=== PATIENT | female | born 1995 | race African-American/Black ===

== ENCOUNTER 2017-09-05 10:54 | Emergency (ER) ==
[2017-09-05 11:01] VITALS: BP 125/79; TEMP 97.8; BMI 21.6
--- NOTE | 2017-09-05 12:20 | ED.PDOC ---
General ED Provider: Dr. VELMA CASTRO Chief Complaint: Abdominal Pain Stated Complaint: ABDOMINAL PAIN Time Seen by Physician: 11:00 Mode of Arrival: Walk-In Information Source: Patient Exam Limitations: No limitations Primary Care Provider: [facility] Nursing and Triage Documentation Reviewed and Agree: Yes Reviewed sepsis parameters & appropriate labs ordered?: Yes System Inflammatory Response Syndrome: Not Applicable Sepsis Protocol: For patient's 13 years and over: Temp is 96.8 and below OR 101 and greater Pulse >90 BPM Resp >20/minute Acutely Altered Mental Status Are patient's symptoms suggestive of a new infection, such as: -Pneumonia -Skin, Soft Tissue -Endocarditis -UTI -Bone, Joint Infection -Implantable Device -Acute Abdominal Infection -Wound Infection -Meningitis -Blood Stream Catheter Infection -Unknown System Inflammatory Response Syndrome: Not Applicable GI Complaint Exam - Abdominal Pain Complaint/Exam Onset: Gradual Duration: 2 MONTHS Symptoms Are: Still present Timing: Intermittent Initial Severity: Mild Current Severity: Mild Location of Pain: Diffuse Character: Reports: Dull, Aching Aggravating: Reports: None Alleviating: Reports: None Associated Signs and Symptoms: Reports: Cough. Denies: Diaphoresis, Fever, Chest pain, Dizziness, Back pain, Constipation, Blood in stool, Dysuria, Urinary frequency, Decreased urine output, Decreased appetite, Vaginal bleeding , Vaginal discharge, Nausea, Vomiting, Diarrhea, Sore throat, Decreased activity Related History: Reports: Similar episode AAA Risk Factors: Reports: None Cardiac Risk Factors: Reports: None Ectopic Risk Factors: Reports: None Ovarian Torsion Risk Factors: Reports: None Surgical Obstruction Risk Factors: Reports: None Related Surgical History: Reports: None Patient Rh Status: Unknown Abdominal Findings: Present: None Female Body Picture: 1 - MILD PAIN , NO REBOUND NO BRUSING Differential Diagnoses: Appendicitis, Bowel Obstruction, Pancreatitis, UTI Quality Indicators for AMI: EKG in 10min. Quality Indicators for Cardiac Chest Pain: EKG in 10min. Quality Indicator For Non-Traumatic Chest Pain/Syncope: EKG Performed Review of Systems - Review Of Systems Constitutional: Reports: No symptoms Eyes: Reports: No symptoms Ears, Nose, Mouth, Throat: Reports: No symptoms Respiratory: Reports: No symptoms Cardiac: Reports: No symptoms GI: Reports: Abdominal pain : Reports: Other (NO PERIODS SINCE MAY ) Musculoskeletal: Reports: No symptoms Skin: Reports: No symptoms Neurological: Reports: No symptoms Endocrine: Reports: No symptoms Hematologic/Lymphatic: Reports: No symptoms All Other Systems: Reviewed and Negative Past Medical History - Past Medical History Previously Healthy: Yes Endocrine: Reports: None Cardiovascular: Reports: None Respiratory: Reports: None Hematological: Reports: None Gastrointestinal: Reports: None Genitourinary: Reports: None Neuro/Psych: Reports: None Musculoskeletal: Reports: None Cancer: Reports: None Last Menstrual Period: end may - Surgical History General Surgical History: Reports: Unknown - Family History Family History: Reports: Unknown - Social History Smoking Status: Current every day smoker, Light tobacco smoker Hx Substance Use: No Alcohol Screening: None Physical Exam - Physical Exam Appearance: Well-appearing, No pain distress, Well-nourished Eyes: CASSIE, EOMI, Conjunctiva clear ENT: Ears normal, Nose normal, Oropharynx normal Respiratory: Airway patent, Breath sounds clear, Breath sounds equal, Respirations nonlabored Cardiovascular: RRR, Pulses normal, No rub, No murmur GI/: Soft, Nontender, No masses, Bowel sounds normal, No Organomegaly Musculoskeletal: Normal strength, ROM intact, No edema, No calf tenderness Skin: Warm, Dry, Normal color Neurological: Sensation intact, Motor intact, Reflexes intact, Cranial nerves intact, Alert, Oriented Psychiatric: Affect appropriate, Mood appropriate Critical Care Note - Critical Care Note Total Time (mins): 0 Course - Course Hematology/Chemistry: 09/05/17 11:20 09/05/17 11:20 Orders, Labs, Meds: Lab Review 09/05/17 09/05/17 09/05/17 11:20 11:20 11:20 WBC 12.33 H RBC 4.85 Hgb 14.9 Hct 43.3 MCV 89.3 MCH 30.7 MCHC 34.4 RDW Coeff of Yonny 14.1 Plt Count 277 Immature Gran % (Auto) 0.3 Neut % (Auto) 75.2 Lymph % (Auto) 16.1 Lucas % (Auto) 6.5 Eos % (Auto) 1.5 Baso % (Auto) 0.4 Immature Gran # (Auto) 0.0 Neut # (Auto) 9.3 H Lymph # (Auto) 2.0 Lucas # (Auto) 0.8 Eos # (Auto) 0.2 Baso # (Auto) 0.1 Sodium 139 Potassium 3.6 Chloride 105 Carbon Dioxide 24 Anion Gap 13.6 BUN 6 L Creatinine 0.68 Estimated GFR (MDRD) 130.00 BUN/Creatinine Ratio 8.82 Glucose 90 Calcium 9.6 Total Bilirubin 0.6 AST 14 L ALT 13 Alkaline Phosphatase 88 Total Protein 7.8 Albumin 4.1 Globulin 3.7 Albumin/Globulin Ratio 1.11 Amylase 105 Lipase 17 Serum , Qual Negative Urine Color Urine Clarity Urine pH Ur Specific [place] Urine Protein Urine Glucose (UA) Urine Ketones Urine Blood Urine Nitrite Urine Bilirubin Urine Urobilinogen Ur Leukocyte Esterase Urine Microscopic RBC Urine Microscopic WBC Ur Squamous Epith Cells Urine Mucus Influ A Molecular Assay Influ B Molecular Assay 09/05/17 09/05/17 11:20 11:40 WBC RBC Hgb Hct MCV MCH MCHC RDW Coeff of Yonny Plt Count Immature Gran % (Auto) Neut % (Auto) Lymph % (Auto) Lucas % (Auto) Eos % (Auto) Baso % (Auto) Immature Gran # (Auto) Neut # (Auto) Lymph # (Auto) Lucas # (Auto) Eos # (Auto) Baso # (Auto) Sodium Potassium Chloride Carbon Dioxide Anion Gap BUN Creatinine Estimated GFR (MDRD) BUN/Creatinine Ratio Glucose Calcium Total Bilirubin AST ALT Alkaline Phosphatase Total Protein Albumin Globulin Albumin/Globulin Ratio Amylase Lipase Serum , Qual Urine Color Yellow Urine Clarity Clear Urine pH 7.0 Ur Specific [place] 1.025 Urine Protein Trace Urine Glucose (UA) Negative Urine Ketones Negative Urine Blood 2+ Urine Nitrite Negative Urine Bilirubin Negative Urine Urobilinogen 1.0 Ur Leukocyte Esterase 1+ Urine Microscopic RBC 10-20 Urine Microscopic WBC 20-30 Ur Squamous Epith Cells 10-20 Urine Mucus 2+ Influ A Molecular Assay Negative by naat Influ B Molecular Assay Negative by naat Orders Category Date Time Status AMYLASE Stat LAB 09/05/17 11:20 Completed CBC W/ AUTO DIFF Stat LAB 09/05/17 11:20 Completed COMPREHENSIVE METABOLIC PANEL Stat LAB 09/05/17 11:20 Completed FLU A/B MOLECULAR Stat LAB 09/05/17 11:40 Completed LIPASE Stat LAB 09/05/17 11:20 Completed MOLECULAR GROUP A STREP Stat LAB 09/05/17 11:40 Completed SERUM Stat LAB 09/05/17 11:20 Completed URINALYSIS C & S IF INDICATED Stat LAB 09/05/17 11:20 Completed URINE CULTURE Routine LAB 09/05/17 11:[address] ABDOMEN/PELVIS WO CONTRAST Stat RADS 09/05/17 11:18 Ordered Vital Signs: Temp Pulse Resp BP Pulse Ox 09/05/17 10:54 97.8 F 80 20 125/79 98 Departure - Departure Time of Disposition: 13:00 Disposition: HOME SELF-CARE Discharge Problem: Abdominal pain, Amenorrhea Abdominal pain Qualifiers: Abdominal location: generalized Qualified Code(s): R10.84 - Generalized abdominal pain Instructions: Abdominal Pain (ED) Condition: Good Pt referred to PMD for follow-up: Yes IPMP verified?: No Additional Instructions: Please call your Family Physician as soon as possible to schedule a follow-up appointment. Allergies/Adverse Reactions: Allergies No Known Allergies Allergy (Verified 09/05/17 11:02) Home Medications: Ambulatory Orders 1 [No Reported Medications] 09/05/17
--- NOTE | 2017-09-05 12:50 | CT ---
EXAM: CT Abdomen without contrast. CT Pelvis without contrast. HISTORY: Lower abdominal pain and vomiting. COMPARISON: None available. TECHNIQUE: Multiple axial images of the abdomen and pelvis were obtained without intravenous contras t. Images were reformatted in the sagittal and coronal plane. FINDINGS: Please note that evaluation of the abdominal and pelvic structures is limited due to lack of intravenous contrast. The lung bases are clear. No acute osseous abnormality identified. The liver, gallbladder, pancreas, spleen, and adrenal glands demonstrate normal contour. Multiple bi lateral nonobstructing renal calculi are seen measuring up to 0.2 cm on the left and 0.3 cm on the ri ght. No hydronephrosis or perinephric inflammation identified. No ureteral or bladder calculi are s een. The bowel is normal in course and caliber without evidence for obstruction or inflammatory process. The appendix is not seen with certainty. No pericecal inflammation identified. Uterus demonstrates normal contour. Bladder is not well distended. Trace amount of free pelvic fluid noted. No free ai r identified. IMPRESSION: 1. Bilateral nephrolithiasis without obstructive uropathy. 2. Nonvisualized appendix.
== END 2017-09-05 13:05 | disposition home or self-care (01) ==
LOC: ED 10:54
DX: R10.84 Generalized abdominal pain (principal); N91.2 Amenorrhea, unspecified; R31.9 Hematuria, unspecified; F17.210 Nicotine dependence, cigarettes, uncomplicated
CPT/HCPCS: 36415; 80053; 81001; 82150; 83690; 84703; 85025; 87086; 87502; 87651; 99283

== ENCOUNTER 2017-12-06 13:34 | Emergency (ER) | payer OTHER ==
[2017-12-06 13:36] VITALS: BP 112/73; TEMP 98.2; BMI 20.9
== END 2017-12-06 14:02 | disposition left against medical advice (07) ==
LOC: ED 13:34
DX: R51 Headache (principal); R50.9 Fever, unspecified; J02.9 Acute pharyngitis, unspecified